=== PATIENT | male | born 1965 | race Caucasian/White ===

== ENCOUNTER 2017-10-22 06:47 | Day surgery (SDC) | payer OTHER ==
[~2017-10-22] VITALS: Ht 180.3 cm; Wt 154.5 kg
[~2017-10-22 06:47] MED LIST: ASCORBIC ACID500 M1 PO; B COMPLETE1 EACH PO; BENICAR HCT 401 EAC1 PO; BENICAR40 MG PO; CAMPRAL333 MG PO; CLINDAMYCIN HC300 MG PO; COLCRYS0.6 MG PO; GLUCOPHAGE500 MG PO; NORVASC5 MG PO; POTASSIUM PO; TYLENOL WITH C1 EACH PO; VITAMIN B122500 MCG PO; ZYLOPRIM100 MG PO
[2017-10-22 07:45] VITALS: BP 160/84
[2017-10-22] MEDS ORDERED: NORCO 5/3251 TABLET PO (09:48)
[2017-10-22 10:30] VITALS: BP 174/78
[2017-10-22 11:20] VITALS: BP 174/80
== END 2017-10-22 11:20 | disposition home or self-care (01) ==
LOC: SDC 06:47
PROVIDERS: Surgery
PROC: 0JPV0WZ Removal of Totally Implantable Vascular Access Device from Upper Extremity Subcutaneous Tissue and Fascia, Open Approach (ICD-10-PCS; principal; 2017-10-22)
DX: Z45.2 Encounter for adjustment and management of vascular access device (principal); I87.8 Other specified disorders of veins; I10 Essential (primary) hypertension; E11.9 Type 2 diabetes mellitus without complications; E78.5 Hyperlipidemia, unspecified; K21.9 Gastro-esophageal reflux disease without esophagitis; F10.10 Alcohol abuse, uncomplicated; Z85.038 Personal history of other malignant neoplasm of large intestine; Z92.21 Personal history of antineoplastic chemotherapy; Z87.891 Personal history of nicotine dependence; Z79.84 Long term (current) use of oral hypoglycemic drugs
CPT/HCPCS: 82948; J0690; J2250; J2405; J3010